=== PATIENT | male | born 1990 | race Caucasian/White ===

== ENCOUNTER 2017-01-16 18:26 | Emergency (ER) | payer SELFPAY ==
[2017-01-16 18:36] VITALS: RESP 16; TEMP 98.8
[2017-01-16 18:57] LABS: COLOR YELLOW; LEUKOCYTE ESTERASE,URINE TRACE (NEGATIVE); NITRITE,URINE NEGATIVE (NEGATIVE)
[2017-01-16 19:00] LABS: MUCUS TRACE /lpf (NONE-1+); RBC,URINE 50-182 /hpf (0-3)
--- NOTE | 2017-01-16 19:20 | EDPHY ---
H & P Smoking Status: Never smoked Time Seen by Provider: 01/16/17 18:54 HPI/ROS: CHIEF COMPLAINT: Blood in urine and blood in seen HISTORY OF PRESENT ILLNESS: This is a 26-year-old male presenting to the emergency department complaining of a blood in urine, patient also reports that intermittently over the past 6 months he has noted some blood in his semen after ejaculation with some irritation. Patient reports chronic lower back pain with some inflammation in his back over the past couple of weeks has been seeing a chiropractor. Patient also reports intermittent testicular tenderness over the past few weeks. No testicular/penile swelling REVIEW OF SYSTEMS: Constitutional: No fever, no chills. Eyes: No discharge. ENT: No sore throat. Cardiovascular: No chest pain, no palpitations. Respiratory: No cough, no shortness of breath. Gastrointestinal: No abdominal pain, no vomiting. Genitourinary: hematuria with dysuria, testicular tenderness no swelling Musculoskeletal: Chronic lower back pain. Skin: No rashes. Neurological: No headache. (Tiffanie Hernandez) Physical Exam: General Appearance: Alert, no distress. Eyes: Pupils equal and round no pallor or injection. ENT, Mouth: Mucous membranes moist. Respiratory: There are no retractions, lungs are clear to auscultation. Cardiovascular: Regular rate and rhythm. Gastrointestinal: Abdomen is soft and nontender, no masses, bowel sounds normal. GI: Circumcised. No testicular swelling. Testicular non tenderness on palpation Neurological: No focal deficits. Moving all extremities Skin: Warm and dry, no rashes. Musculoskeletal: Neck is supple nontender. Extremities are symmetrical, full range of motion. Psychiatric: Patient is oriented X 3, there is no agitation. (Tiffanie Hernandez) Constitutional: Initial Vital Signs Temperature (C) 37.1 C 01/16/17 18:34 Heart Rate 79 01/16/17 18:34 Respiratory Rate 16 01/16/17 18:34 Blood Pressure 140/90 H 01/16/17 18:34 O2 Sat (%) 97 01/16/17 18:34 O2 Delivery Mode Room Air Allergies/Adverse Reactions: No Known Allergies Allergy (Unverified 01/16/17 18:36) Home Medications: Medication Instructions Recorded Ciprofloxacin [Cipro] 500 mg PO BID #14 tab 01/16/17 Medical Decision Making ED Course/Re-evaluation: The patient was evaluated and managed by the DAIRY TESTER. My cosignature indicates that I reviewed the chart and I agree with the findings and plan of care as documented. I am the secondary supervising physician. (Anastasiya Lakhani) Discussed the plan of care: CBC, CMP, UA Discussed all results with patient. Initial antibiotics given here. DC home with instructions---> stable (Tiffanie Hernandez) Differential Diagnosis: Other differential diagnosis considered but not limited to pyelonephritis, epididymitis and acute renal failure (Tiffanie Hernandez) - Data Points Laboratory Results: Laboratory Results 01/16/17 20:06 01/16/17 20:06 01/16/17 01/16/17 01/16/17 20:06 20:06 18:44 WBC 5.91 10^3/uL 10^3/uL (3.80-9.50) RBC 4.32 10^6/uL L 10^6/uL (4.40-6.38) Hgb 13.4 g/dL L g/dL (13.7-17.5) Hct 40.4 % % (40.0-51.0) MCV 93.5 fL fL (81.5-99.8) MCH 31.0 pg pg (27.9-34.1) MCHC 33.2 g/dL g/dL (32.4-36.7) RDW 11.8 % % (11.5-15.2) Plt Count 339 10^3/uL 10^3/uL (150-400) MPV 8.8 fL fL (8.7-11.7) Neut % (Auto) 57.2 % % (39.3-74.2) Lymph % (Auto) 30.5 % % (15.0-45.0) Pope % (Auto) 8.8 % % (4.5-13.0) Eos % (Auto) 2.2 % % (0.6-7.6) Baso % (Auto) 1.0 % % (0.3-1.7) Nucleat RBC Rel Count 0.0 % % (0.0-0.2) Absolute Neuts (auto) 3.38 10^3/uL 10^3/uL (1.70-6.50) Absolute Lymphs (auto) 1.80 10^3/uL 10^3/uL (1.00-3.00) Absolute Monos (auto) 0.52 10^3/uL 10^3/uL (0.30-0.80) Absolute Eos (auto) 0.13 10^3/uL 10^3/uL (0.03-0.40) Absolute Basos (auto) 0.06 10^3/uL 10^3/uL (0.02-0.10) Absolute Nucleated RBC 0.00 10^3/uL 10^3/uL (0-0.01) Immature Gran % 0.3 % % (0.0-1.1) Immature Gran # 0.02 10^3/uL 10^3/uL (0.00-0.10) Sodium 142 mEq/L mEq/L (134-144) Potassium 4.1 mEq/L mEq/L (3.5-5.2) Chloride 104 mEq/L mEq/L (97-110) Carbon Dioxide 28 mEq/l mEq/l (22-31) Anion Gap 10 mEq/L mEq/L (8-16) BUN 10 mg/dL mg/dL (7-23) Creatinine 0.7 mg/dL mg/dL (0.7-1.3) Estimated GFR > 60 Glucose 89 mg/dL mg/dL (70-100) Calcium 9.4 mg/dL mg/dL (8.5-10.4) Urine Color YELLOW Urine Appearance CLEAR Urine pH 7.0 (5.0-7.5) Ur Specific [place] 1.021 (1.002-1.030) Urine Protein NEGATIVE (NEGATIVE) Urine Ketones TRACE H (NEGATIVE) Urine Blood 2+ H (NEGATIVE) Urine Nitrate NEGATIVE (NEGATIVE) Urine Bilirubin NEGATIVE (NEGATIVE) Urine Urobilinogen NEGATIVE EU EU (0.2-1.0) Ur Leukocyte Esterase TRACE H (NEGATIVE) Urine RBC 50-182 /hpf H /hpf (0-3) Urine WBC 1-3 /hpf /hpf (0-3) Ur Epithelial Cells TRACE /lpf /lpf (NONE-1+) Urine Mucus TRACE /lpf /lpf (NONE-1+) Ur Culture Indicated? INDICATED H (NI) Urine Glucose NEGATIVE (NEGATIVE) Medications Given: Discontinued Medications Ciprofloxacin (Cipro) 500 mg PO EDNOW ONE PRN Reason: Protocol Stop: 01/16/17 20:47 Last Admin: 01/16/17 20:56 Dose: 500 mg Departure - Departure Disposition: Home, Routine, Self-Care Clinical Impression: Urinary tract infection Qualifiers: Urinary tract infection type: site unspecified Hematuria presence: with hematuria Qualified Code(s): N39.0 - Urinary tract infection, site not specified Condition: Good Instructions: Urinary Tract Infection in Men (ED) Additional Instructions: Discussed discharge instructions 1. Take all medications prescribed 2. Increase water intake 3. I would recommend no sexual contact until symptoms have resolved 4. Follow up with [facility] in your primary care next week Referrals: JONATAN JOHNSON [Other] - As per Instructions [facility],. [Clinic] - As per Instructions Prescriptions: Ciprofloxacin [Cipro] 500 mg PO BID #14 tab
[2017-01-16 20:15] LABS: % IMMATURE GRANULYOCYTES 0.3 % (0.0-1.1); ABSOLUTE IMMATURE GRANULOCYTES 0.02 10^3/uL (0.00-0.10); ADD DIFF? NO; ADD MORPH? NO; ADD SCAN? NO; ATYPICAL LYMPHOCYTE FLAG 30 (0-99); FRAGMENT RBC FLAG 0 (0-99); HEMATOCRIT 40.4 % (40.0-51.0); HEMOGLOBIN 13.4 g/dL (13.7-17.5); LEFT SHIFT FLG 0 (0-99); LIPEMIA HEMOLYSIS FLAG 80 (0-99); MEAN CELL HEMOGLOBIN CONCENTR. 33.2 g/dL (32.4-36.7); MEAN CELL VOLUME 93.5 fL (81.5-99.8); MEAN PLATELET VOLUME 8.8 fL (8.7-11.7); PLATELET CLUMPS FLAG 0 (0-99); PLATELET COUNT 339 10^3/uL (150-400); RED BLOOD CELL COUNT 4.32 10^6/uL (4.40-6.38); RED CELL DISTRIBUTION WIDTH 11.8 % (11.5-15.2)
[2017-01-16 20:25] LABS: ANION GAP 10 mEq/L (8-16); CARBON DIOXIDE 28 mEq/l (22-31); CHLORIDE 104 mEq/L (97-110); CREATININE 0.7 mg/dL (0.7-1.3); GLUCOSE 89 mg/dL (70-100); POTASSIUM 4.1 mEq/L (3.5-5.2); SODIUM 142 mEq/L (134-144)
[2017-01-16 20:26] LABS: CALCIUM 9.4 mg/dL (8.5-10.4); GLOMERULAR FILTRATION RATE > 60
[2017-01-16] MEDS ORDERED: CIPROFLOXACIN 500 MG TAB PO ONE (20:46)
[2017-01-16 20:57] VITALS: BP 129/75; PULSE 84; O2SAT 94
== END 2017-01-16 20:55 | disposition home or self-care (01) ==
DX: N39.0 Urinary tract infection, site not specified (principal); B96.89 Other specified bacterial agents as the cause of diseases classified elsewhere

== ENCOUNTER 2017-03-26 11:17 | Emergency (ER) | payer OTHER ==
[2017-03-26 11:23] VITALS: RESP 16
--- NOTE | 2017-03-26 12:32 | EDPHY ---
H & P Stated Complaint: stomach pains "for a couple of months & i fell a few weeks ago " back Time Seen by Provider: 03/26/17 11:28 HPI/ROS: CHIEF COMPLAINT: Low back pain, abdominal pain HISTORY OF PRESENT ILLNESS: 26-year-old male in the emergency department with 2 complaints. 1st primary complaint is 3 weeks of low back pain after he sustained a mechanical slip and fall at work. 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 He has been complaining of coccygeal and low back pain ever since. No incontinence no retention no saddle anesthesia no radiculopathy no footdrop. He did not seek workmen's compensation follow-up. His 2nd complaint is ongoing intermittent abdominal bloating, belching, diarrhea , abdominal pain for the past several months. He believes it is secondary to lactose and states that his colleagues at work have been placing dairy products into his food "as a joke" . He denies: Nausea, vomiting, melena, hematochezia , acute abdominal pain, current complaints of abdominal pain. . 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 Appears nontoxic 2) HEAD: Normocephalic, atraumatic 3) HEENT: Pupils equal, round, reactive to light bilaterally. Sclera anicteric. 4) NECK: Full range of motion, no meningeal signs. 5) LUNGS: Clear auscultation bilaterally, no wheezes, no rhonchi, no retractions. 6) HEART: Regular rate and rhythm, no murmur, no heave, no gallop. 7) ABDOMEN: No guarding, no rebound, no focal tenderness, negative McBurney's, negative Iyp's, negative Rovsing's, negative peritoneal sign, I am unable to elicit any abdominal pain on exam 8) MUSCULOSKELETAL: Moving all extremities, no focal areas of tenderness, no obvious trauma. No peripheral edema or discoloration. 9) BACK: No CVA tenderness, no midline vertebral tenderness, no fluctuance, no step-off, no obvious trauma, no visual or palpable abnormality. Patella Achilles reflexes intact to bilateral strength 5/5 10) SKIN: No rash, no petechiae. 11) Psychiatric: Patient is oriented X 3, there is no agitation. DIFFERENTIAL DIAGNOSIS: In no particular order, including but not limited to, fracture, sprain/strain, cauda equina, spinal infectious etiology. - Personal History Current Tetanus/Diphtheria Vaccine: Yes Current Tetanus Diphtheria and Acellular Pertussis (TDAP): Yes - Medical/Surgical History Hx Asthma: No Hx Chronic Respiratory Disease: No Hx Diabetes: No Hx Cardiac Disease: No Hx Renal Disease: No Hx Cirrhosis: No Hx Alcoholism: No Hx HIV/AIDS: No Hx Splenectomy or Spleen Trauma: No Other PMH: neg per pt - Social History Smoking Status: Never smoked Constitutional: Initial Vital Signs Temperature (C) 36.4 C 03/26/17 11:21 Heart Rate 71 03/26/17 11:21 Respiratory Rate 16 03/26/17 11:21 Blood Pressure 123/80 H 03/26/17 11:21 O2 Sat (%) 97 03/26/17 11:21 O2 Delivery Mode Room Air Allergies/Adverse Reactions: No Known Allergies Allergy (Unverified 01/16/17 18:36) Home Medications: Medication Instructions Recorded Ciprofloxacin [Cipro] 500 mg PO BID #14 tab 01/16/17 Medical Decision Making - Diagnostics Imaging Results: Imaging Impressions Lumbar Spine X-Ray 03/26/17 11:54 Impression: Mild lumbar levoscoliosis. Degenerative disk disease at L5 is S1. No acute fracture. Sacrum and Coccyx X-Ray 03/26/17 11:54 Impression: Negative exam. Images reviewed by myself ED Course/Re-evaluation: Patient is in the ER with 2 complaints. Regarding his low back pain, informed patient that I have a lower index of suspicion for cauda equina, epidural abscess, epidural hematoma, lumbar myositis , diskitis, as the patient is neurologically intact in the lower extremities, has patella and Achilles reflexes intact and equal bilaterally, has no neurologic deficits, no incontinence, no retention, no midline pain, no fluctuance, afebrile, no flulike symptoms. Pain may be secondary to muscular strain, may be secondary to discogenic etiology. At this point I do not identify definitive indication for emergent MRI, however patient may necessitate this on an outpatient basis. 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 He declines any prescriptions. Regarding his abdominal distension, bloating which has been occurring for several months, doubt acute surgical abdominal pathology, doubt acute appendicitis, bowel obstruction, acute pancreatitis. I did he currently has no complaints of abdominal pain. Do not think that diagnostic studies are currently indicated at this time. However have given him both primary care and GI follow-up information and usual and customary abdominal precautions and instructions. Departure - Departure Disposition: Home, Routine, Self-Care Clinical Impression: Abdominal distension Low back pain Qualifiers: Chronicity: acute Back pain laterality: midline Sciatica presence: without sciatica Qualified Code(s): M54.5 - Low back pain Condition: Good Instructions: Acute Diarrhea (ED), Acute Low Back Pain (ED), Gas and Bloating ( ED) Additional Instructions: Seek medical attention if you develop new or worsening pain, if you develop bladder or bowel dysfunction, numbness around your perineum, foot drop, or any other symptoms that concern you. In addition, if you develop nausea, vomiting, or any other symptoms related to her abdomen, recommend you return to the emergency department immediately for re-evaluation Referrals: Wiliam Malik MD [Medical Doctor] - 5-7 days, if not improved [facility],. [Clinic] - 1-2 days without fail ([facility] offers primary care services. Recommend you establish care with a primary care provider)
[2017-03-26 13:17] VITALS: BP 128/87; PULSE 70; TEMP 98.1; O2SAT 98
== END 2017-03-26 13:17 | disposition home or self-care (01) ==
DX: S39.92XA Unspecified injury of lower back, initial encounter (principal); R14.0 Abdominal distension (gaseous); W01.0XXA Fall on same level from slipping, tripping and stumbling without subsequent striking against object, initial encounter; Y92.69 Other specified industrial and construction area as the place of occurrence of the external cause; Y99.0 Civilian activity done for income or pay

== ENCOUNTER 2017-09-12 19:42 | Emergency (ER) | payer MEDICAID, OTHER ==
[2017-09-12 19:47] VITALS: BP 114/76; PULSE 83; RESP 18; TEMP 98.2; O2SAT 97
--- NOTE | 2017-09-12 20:16 | EDPHY ---
H & P Time Seen by Provider: 09/12/17 20:09 HPI/ROS: CHIEF COMPLAINT: Back pain. HISTORY OF PRESENT ILLNESS: This patient is a 26 year old male with scoliosis complaining of low back pain. Onset of worsening back pain over the last several weeks. 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 He has been preforming extra duties involving heavy and repetitive lifting which are not generally part of his job. He usually does exercises including yoga, core strength, and pull-ups to strengthen his back, but feels he cannot complete these or his normal activities any more due to pain. The patient prefers not to take medication, so has declined offers of narcotics for pain management in the past. Providers have recommended he follow up with physical therapy, but he has not done this yet as he does not have care established with a primary care physician. His primary concern today is to find a solution to his worsening pain. He denies recent trauma or illness. No radiation of pain to his legs, no numbness or weakness in his extremities, no incontinence of bladder or bowels. He has no further complaints at this time. REVIEW OF SYSTEMS: A 10 point review of systems was performed and is negative with the exception of the elements mentioned in the history of present illness. Past Medical/Surgical History: Scoliosis. Social History: Works at the [employer]. Former smoker. Originally from [place]. Smoking Status: Former smoker Physical Exam: General Appearance: Alert, pleasant Eyes: Pupils equal and round, no conjunctival pallor ENT, Mouth: Mucous membranes moist Neck: Normal inspection Respiratory: Lungs are clear to auscultation Cardiovascular: Regular rate and rhythm Gastrointestinal: Abdomen is soft and non-tender Back: Mild scoliosis. Tenderness to left lumbar paraspinous musculature Neurological: A&O, motor 5/5, sensory intact Skin: Warm and dry Extremities: normal inspection Psychiatric: Mood and affect normal Constitutional: Initial Vital Signs Temperature (C) 36.8 C 09/12/17 19:44 Heart Rate 83 09/12/17 19:44 Respiratory Rate 18 09/12/17 19:44 Blood Pressure 114/76 09/12/17 19:44 O2 Sat (%) 97 09/12/17 19:44 O2 Delivery Mode Room Air Allergies/Adverse Reactions: No Known Allergies Allergy (Unverified 09/12/17 19:44) Medical Decision Making ED Course/Re-evaluation: 26 y/o male with history of scoliosis presents with low back pain due to repeated heavy lifting. Exam reveals mild scoliosis and tenderness to left lumbar paraspinous muscles. The patient has had x-ray imaging in the past, and declines repeat imaging at this time. He declines any pain medication. He requests a work note for limited duty to give him time to heal his back. He has no further requests at this time. We discussed follow up at length including physical therapy and strengthening exercises for the low back and core. I discussed use of ibuprofen for pain relief. Plan to discharge home in good condition with a limited duty work note for one month. He understands he needs to establish care with a primary care physician and follow up with physical therapy. Return precautions discussed. He is comfortable with this plan. Departure - Departure Disposition: Home, Routine, Self-Care Clinical Impression: Low back pain Qualifiers: Chronicity: acute Back pain laterality: left Sciatica presence: without sciatica Qualified Code(s): M54.5 - Low back pain Condition: Good Instructions: Acute Low Back Pain (ED), Back Pain (ED), Lower Back Exercises ( ED), Core Strengthening Exercises (ED) Additional Instructions: Use ibuprofen and Tylenol as directed on the packaging for pain relief as needed. You can also try using a heating pad. Visit a primary care physician to establish care and seek a referral to physical therapy. When you do lift or bend over, try to use your legs and keep your back straight as much as possible. When you are feeling better, work on strengthening your back. Return to the emergency department for severe pain, fever, numbness, difficulty walking, change in location or nature of pain or other concerns. Referrals: Digna Azul MD [[facility] [place]] - As per Instructions Stand Alone Forms: Work Limited Duty Report Scribed for: Erendira Samuels Report Scribed by: Aysha Albrecht Date of Report: 09/12/17 Time of Report: 20:16 Physician Review and Approval Statement: 09/12/17 20:16 Portions of this note were transcribed by a medical translator. I personally performed a history, physical exam, medical decision making, and confirmed accuracy of information the transcribed note.
== END 2017-09-12 20:41 | disposition home or self-care (01) ==
DX: M54.5 Low back pain (principal); Z87.891 Personal history of nicotine dependence

== ENCOUNTER 2018-01-30 18:24 | Emergency (ER) | payer MEDICAID ==
--- NOTE | 2018-01-30 19:03 | EDPHY ---
H & P Stated Complaint: "Sick" x couple of months; numerous somatic c/o - Personal History Current Tetanus Diphtheria and Acellular Pertussis (TDAP): Yes - Medical/Surgical History Hx Asthma: No Hx Chronic Respiratory Disease: No Hx Diabetes: No Hx Cardiac Disease: No Hx Renal Disease: No Hx Cirrhosis: No Hx Alcoholism: No Hx HIV/AIDS: No Hx Splenectomy or Spleen Trauma: No Other PMH: FX ARMS/SURGERIES - Social History Smoking Status: Former smoker Time Seen by Provider: 01/30/18 18:46 HPI/ROS: CHIEF COMPLAINT: "I've been sick for a long time" HISTORY OF PRESENT ILLNESS: 27-year-old male generally healthy in the ER via private vehicle with multiple complaints. States that for the past several weeks and months he has been experiencing multiple symptoms including, but not limited to, intermittent non thunderclap headaches with no associated nausea or vomiting, intermittent diarrhea, intermittent sneezing fits, fatigue, sleeping more than usual. He notes that multiple housemates have been feeling similar symptoms, seems to feel worse when he is at home. Notes no carbon monoxide alarm states that he is aware of at home. Denies: Nausea vomiting, melena hematochezia, chest pain, cough, sore throat, dyspnea, abdominal pain, weight loss, alcohol or drug use, chest pain, neck pain , headache, rash. REVIEW OF SYSTEMS: A ten point review of systems was performed and is negative with the exception of the items mentioned in the HPI PAST MEDICAL & SURGICAL HISTORY: No pertinent medical or surgical history SOCIAL HISTORY:[ Nonsmoker. No drug use. 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 Appears to be in no acute distress. 2) HEAD: Normocephalic, atraumatic 3) HEENT: Pupils equal, round, reactive to light bilaterally. Sclera anicteric. Nasopharynx, oropharynx, clear, no lesions. Ears bilaterally with normal tympanic membranes. 4) NECK: Full range of motion, no meningeal signs. 5) LUNGS: Clear auscultation bilaterally, no wheezes, no rhonchi, no retractions. 6) HEART: Regular rate and rhythm, no murmur, no heave, no gallop. 7) ABDOMEN: No guarding, no rebound, no focal tenderness, negative McBurney's, negative Yip's, negative Rovsing's, negative peritoneal sign, 8) MUSCULOSKELETAL: Moving all extremities, no focal areas of tenderness, no obvious trauma. No peripheral edema or discoloration. 9) BACK: No CVA tenderness, no midline vertebral tenderness, no fluctuance, no step-off, no obvious trauma, no visual or palpable abnormality. 10) SKIN: No rash, no petechiae. 11) Psychiatric: Patient is oriented X 3, there is no agitation. 12) NEURO: Awake, alert, and oriented to person, place and time. Answers questions appropriately. There were no obvious focal neurologic abnormalities. No cerebellar dysfunction. Cranial nerves 2 through to 12 intact. Normal steady gait. Upper and lower extremities bilaterally with strength 5 / 5, reflexes 2+. DIFFERENTIAL DIAGNOSIS: In no particular order including but limited to hematologic abnormality, endocrinologic abnormality, malignancy, somatic etiology (Magali,Ankit Sheila) Constitutional: Initial Vital Signs Temperature (C) 37.2 C 01/30/18 18:24 Heart Rate 76 01/30/18 18:24 Respiratory Rate 16 01/30/18 18:24 Blood Pressure 118/84 H 01/30/18 18:24 O2 Sat (%) 98 01/30/18 18:24 O2 Delivery Mode Room Air O2 (L/minute) 2 Allergies/Adverse Reactions: Penicillins Allergy (Unknown, Verified 02/01/18 19:45) as child Home Medications: Medication Instructions Recorded Clindamycin 150 mg PO TID #24 cap 02/01/18 Hydrocodone/APAP 5/325 [Davis 1 - 2 each PO Q6 PRN #20 tab 02/01/18 5/325] Medical Decision Making ED Course/Re-evaluation: 7:03 p.m.: Patient has a nonfocal exam. Will obtain laboratory studies including carboxyhemoglobin as the patient notes that he feels worse when he is at home and that multiple house members have been so feeling similar ill feelings. He is a nonsmoker. 8:38 p.m.: Patient was re-evaluated with serial examinations. Discussed case with secondary supervising physician Dr. Sebastián Gallagher in the ER. Regarding patient's complaints of recurrent headaches comma at this time, and applied reasons of a nonfocal neurologic examination and asymptomatic for headache, I do not think that imaging of the head is currently indicated. Specifically discussed with the patient his elevated carboxyhemoglobin which is minimally elevated, less than likely secondary to acute carbon monoxide exposure. Plan will be discharged with close follow-up, given [facility] follow-up information. Specific etiology of his ongoing multiple complaints is incompletely clear at this time however at this time I do not think that further diagnostic studies or hospitalization is indicated. He feels comfortable being discharged. All questions and concerns addressed by myself. ( Ankit De Los Santos) I did not see this patient while he was in the emergency department. However his care was discussed with the PA while the patient was in the department. I agree with treatment plan and management (Sebastián Gallagher) - Data Points Laboratory Results: Laboratory Results 01/30/18 19:05 01/30/18 19:05 Departure - Departure Disposition: Home, Routine, Self-Care Clinical Impression: Fatigue Condition: Good Instructions: Fatigue (ED) Additional Instructions: Return to the ER if you develop new or worsening symptoms Referrals: [facility],. [Clinic] - 1-2 days without fail
[2018-01-30 19:19] LABS: PLATELET COUNT 328 10^3/uL (150-400)
[2018-01-30 20:51] VITALS: BP 117/72
== END 2018-01-30 20:51 | disposition home or self-care (01) ==
DX: R53.83 Other fatigue (principal); Z87.891 Personal history of nicotine dependence

== ENCOUNTER 2018-02-01 19:42 | Emergency (ER) | payer MEDICAID ==
[2018-02-01 19:46] VITALS: BP 125/77
--- NOTE | 2018-02-01 19:54 | EDPHY ---
H & P Stated Complaint: right sided tooth pain onging for months Time Seen by Provider: 02/01/18 19:53 HPI/ROS: Chief Complaint: Dental pain HPI: The patient presents the ED with complaints of dental pain. He reportedly had a cavity filled in his right rear upper and lower molars earlier this year. The patient has had months of ongoing pain. He is scheduled to see his dentist tomorrow. He denies any fever. He denies additional complaints. REVIEW OF SYSTEMS: Neuro: no headache, numbness, weakness ENT: As above Musculoskeletal: As above Skin: no abrasion or lacerations Source: Patient Exam Limitations: No limitations - Personal History Current Tetanus/Diphtheria Vaccine: Yes Current Tetanus Diphtheria and Acellular Pertussis (TDAP): Yes - Medical/Surgical History Hx Asthma: No Hx Chronic Respiratory Disease: No Hx Diabetes: No Hx Cardiac Disease: No Hx Renal Disease: No Hx Cirrhosis: No Hx Alcoholism: No Hx HIV/AIDS: No Hx Splenectomy or Spleen Trauma: No Other PMH: FX ARMS/SURGERIES - Social History Smoking Status: Former smoker - Physical Exam Exam: General Appearance: Alert, no distress Eyes: Pupils equal and round no pallor or injection ENT, Mouth: Mucous membranes moist, dentition is intact, no gingival inflammation Respiratory: There are no retractions, lungs are clear to auscultation Cardiovascular: Regular rate and rhythm Gastrointestinal: Abdomen is soft and nontender, no masses, bowel sounds normal Neurological: 5/5 strength all 4 extremities Skin: Warm and dry, no rashes Musculoskeletal: Neck is supple nontender Extremities: symmetrical, full range of motion Constitutional: Initial Vital Signs Temperature (C) 37.2 C 02/01/18 19:43 Heart Rate 72 02/01/18 19:43 Respiratory Rate 16 02/01/18 19:43 Blood Pressure 125/77 H 02/01/18 19:43 O2 Sat (%) 97 02/01/18 19:43 O2 Delivery Mode Room Air Allergies/Adverse Reactions: Penicillins Allergy (Unknown, Verified 02/01/18 19:45) as child Home Medications: Medication Instructions Recorded Clindamycin 150 mg PO TID #24 cap 02/01/18 Hydrocodone/APAP 5/325 [[place] 1 - 2 each PO Q6 PRN #20 tab 02/01/18 5/325] Medical Decision Making ED Course/Re-evaluation: Patient presents the ED for evaluation of dental pain. I see no obvious dental carries, gingivitis or clinical evidence of an obvious facial abscess. The patient will be provided a take-home pack of pain medications and antibiotics. He is scheduled to see his dentist tomorrow. Departure - Departure Disposition: Home, Routine, Self-Care Clinical Impression: Pain, dental Condition: Good Instructions: Toothache (ED) Additional Instructions: 1. Follow-up with your dentist as scheduled tomorrow. 2. Take antibiotics as prescribed. Referrals: PHYLLIS FERRER [Primary Care Provider] - As per Instructions Prescriptions: Clindamycin 150 mg PO TID #24 cap Hydrocodone/APAP 5/325 [[place] 5/325] 1 - 2 each PO Q6 PRN #20 tab PRN Reason: for pain
== END 2018-02-01 20:12 | disposition home or self-care (01) ==
DX: K08.89 Other specified disorders of teeth and supporting structures (principal); Z87.891 Personal history of nicotine dependence

== ENCOUNTER → 2018-06-09 | Outpatient (CLI) | payer MEDICAID | LOC: FIMAGING 17:12 | PROVIDERS: ATTEND Family Medicine | DX: M41.85 Other forms of scoliosis, thoracolumbar region (principal) ==

== ENCOUNTER 2018-09-18 09:18 | Emergency (ER) | payer MEDICAID ==
--- NOTE | 2018-09-18 09:32 | EDPHY ---
H & P Time Seen by Provider: 09/18/18 09:30 HPI/ROS: CHIEF COMPLAINT: Right-sided low back pain HISTORY OF PRESENT ILLNESS: Patient is a 27-year-old with recent diagnosis of sciatica and degenerative disc disease here with complaints of severe right- sided low back pain is associated with right leg weakness. 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 States he has felt weak in the right leg since. He denies any saddle paresthesias or incontinence of bladder or stool. He has had no fever. He has no history of IV drug use. He has never had a CT scan or an MRI of his back. Tried [id number] Tylenol and Motrin for pain without relief. ROS As detailed in HPI Smoking Status: Former smoker Physical Exam: General: Alert and oriented. Nontoxic appearing. No acute distress HEENT: Pupils PERRLA. No oral lesions. Cardiopulmonary: Regular rate and rhythm. No lower extremity edema Skin: [place] warm and dry. No lesions. Muscle skeletal: Moving all 4 extremities. Ambulatory with lamp. Equal sensation in bilateral lower extremities but decreased strength with right hip flexion and right plantar and dorsiflexion (2/5 on right vs 4/5 on left). Patellar and Achilles tendon DTRs intact bilaterally Constitutional: Initial Vital Signs Temperature (C) 37.1 C 09/18/18 09:20 Heart Rate 76 09/18/18 09:20 Respiratory Rate 16 09/18/18 09:20 Blood Pressure 105/70 09/18/18 09:20 O2 Sat (%) 96 09/18/18 09:20 O2 Delivery Mode Room Air Allergies/Adverse Reactions: Penicillins Allergy (Unknown, Verified 09/18/18 09:24) as child Home Medications: Medication Instructions Recorded Hydrocodone/APAP 5/325 [[place] 1 tab PO Q6 #12 tab 09/18/18 5/325 (*)] Lidocaine 5% [Lidoderm 5% Patch] 700 mg TP Q12 #30 patch 09/18/18 predniSONE 60 mg PO DAILY 4 Days #12 tab 09/18/18 Medical Decision Making - Diagnostics Imaging Results: Imaging Impressions Lumbar Spine MRI 09/18/18 09:42 Impression: Multilevel degenerative disk and degenerative joint disease lumbar spine at L3-L4 through L5-S1 superimposed on a component of congenital spinal stenosis. Left parasagittal protrusion at L3-L4 and central protrusion at L4-L5 with moderate central spinal canal and lateral recess encroachment, as detailed above. Results called and discussed with Wiliam Koehler PA-C on September 18, 2018 at 1100 hours. ED Course/Re-evaluation: 27-year-old male here with 1 day of severe right-sided low back pain radiating to the buttock associated with right leg weakness on exam. He has no red flag symptoms for cauda equina including no saddle paresthesias or incontinence of bladder or stool. That is that he did have remarkable weakness on exam so was sent for MRI. MRI revealed advanced degenerative disc disease for his age and bulging discs at lumbar 3 4 in 4 5 levels encroaching on the lateral recesses bilaterally. He feels improved after IV Toradol and lidocaine patch. We discussed appropriate follow-up and was referred to neurosurgery to further discuss treatment options and his MRI. Patient is ambulatory and agrees to this plan. We discussed indications for return such as numbness, incontinence or other worrisome symptoms. Differential Diagnosis: Cauda equina, epidural abscess, fracture, neoplasm, renal colic, muscle spasm - Data Points Medications Given: Discontinued Medications Ketorolac Tromethamine (Toradol) 15 mg IVP EDNOW ONE Stop: 09/18/18 09:45 Last Admin: 09/18/18 10:10 Dose: 15 mg Lorazepam (Ativan) 1 mg PO EDNOW ONE Stop: 09/18/18 09:49 Last Admin: 09/18/18 10:10 Dose: 1 mg Miscellaneous Medication (Icy Hot Lidocaine/Menthol 4%/1% Patch) 1 patch TD EDNOW ONE Stop: 09/18/18 09:45 Last Admin: 09/18/18 10:10 Dose: 1 patch Prednisone (Prednisone) 60 mg PO EDNOW ONE Stop: 09/18/18 11:06 Last Admin: 09/18/18 11:13 Dose: 60 mg Departure - Departure Disposition: Home, Routine, Self-Care Clinical Impression: Degenerative disc disease, lumbar, Lumbar radiculopathy Condition: Good Instructions: Lumbar Radiculopathy (ED) Additional Instructions: Please take all medication as prescribed. Call the neurosurgeon at the number provided to you today tomorrow morning to schedule appointment to be seen this week. Developed numbness running in his or testicles, lose control of you're bladder or bowels or have other worsening or worrisome symptoms please return to the ER for further evaluation. Referrals: Jazz Hill MD [Primary Care Provider] - As per Instructions Simone Dorman MD [Medical Doctor] - As per Instructions Prescriptions: Hydrocodone/APAP 5/325 [[place] 5/325 (*)] 1 tab PO Q6 #12 tab Lidocaine 5% [Lidoderm 5% Patch] 700 mg TP Q12 #30 patch predniSONE 60 mg PO DAILY 4 Days #12 tab
[2018-09-18] MEDS ORDERED: KETOROLAC 15 MG/1 ML SDV IVP ONE (09:44)
[2018-09-18] MEDS ORDERED: LIDOCAINE 4%/MENTHOL 1% PATCH TD ONE (09:44)
[2018-09-18] MEDS ORDERED: LORazepam 1 MG TAB PO ONE (09:48)
[2018-09-18] MEDS ORDERED: predniSONE 20 MG TAB PO ONE (11:05)
[2018-09-18 11:10] VITALS: BP 110/67
[2018-09-18] MEDS ORDERED: PATCH REMOVAL 1 EA PATCH TD SCH (21:00)
== END 2018-09-18 11:26 | disposition home or self-care (01) ==
DX: M51.16 Intervertebral disc disorders with radiculopathy, lumbar region (principal); Z88.0 Allergy status to penicillin
CPT/HCPCS: 96374; J1885; J7512

== ENCOUNTER 2018-10-01 14:22 | Emergency (ER) | payer MEDICAID ==
[2018-10-01 14:35] VITALS: BP 118/69
== END 2018-10-01 16:06 | disposition left against medical advice (07) ==
DX: Z53.21 Procedure and treatment not carried out due to patient leaving prior to being seen by health care provider (principal)